=== PATIENT | male | born 1965 | race Caucasian/White ===

== ENCOUNTER 2019-09-09 14:24 | Emergency (ER) | payer BC ==
[2019-09-09 14:56] VITALS: BP 136/94
--- NOTE | 2019-09-09 15:18 | UC ---
General HPI - HPI Summary HPI Summary: 54 yo with a history of reflux, which he treats irregularly with protonix or prilosec, taking one tab every 5 to 7 days. Last night, he ate a piece of meat quickly and he states that he brought it right back up again. Since then, he has severe burning with all ingestion and has been sticking his fingers down his throat to make himself vomit. He is not swallowing his saliva. He states that he needs to eat and that he is dehydrated. He is voiding normally , and he has normal vitals. Advised that IV fluids are not indicated at this time. 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 Negative: Cough, Chest Pain - Allergy/Home Medications Allergies/Adverse Reactions: Allergies Allergy/AdvReac Type Severity Reaction Status Date / Time Penicillins Allergy A CHILD Verified 08/11/19 14:55 tetracycline Allergy Hives Verified 08/11/19 14:55 Home Medications: Home Medications Esomeprazole Magnesium [Nexium] 40 mg PO DAILY 09/09/19 [History Confirmed 09/09] Evolocumab [Repatha Sureclick] 140 mg SC SEE INSTRUCTIONS 09/09/19 [History Confirmed 09/09/19] PMH/Surg Hx/FS Hx/Imm Hx Previously Healthy: Yes Endocrine History: Dyslipidemia GI/ History: Gastroesophageal Reflux - Surgical History Surgical History: Yes Surgery Procedure, Year, and Place: 1999 NASAL SEPTUM [place]. [place]EE[place] 4 [place] [facility] [place] [facility] [place] TAG REMOVED - Family History Known Family History: Positive: Diabetes - Social History Occupation: Employed Full-time Lives: With Family Alcohol Use: Rare Alcohol Amount: 1 DRINK/MONTH Substance Use Type: None Smoking Status (MU): Never Smoked Tobacco Have You Smoked in the Last Year: No - Immunization History Most Recent Influenza Vaccination: not in a while Most Recent Tetanus Shot: UTD 2016 Review of Systems All Other Systems Reviewed And Are Negative: Yes Constitutional: Positive: Negative, Other - feels hungry Skin: Positive: Negative Eyes: Positive: Negative ENT: Negative: Sore Throat, Sinus Congestion Respiratory: Negative: Shortness Of Breath, Cough Cardiovascular: Negative: Palpitations, Chest Pain Gastrointestinal: Positive: Vomiting - self induced, Nausea Genitourinary: Positive: Negative Motor: Positive: Negative Neurovascular: Positive: Negative Musculoskeletal: Positive: Negative Neurological: Positive: Negative Psychological: Positive: Other - irritable Physical Exam Triage Information Reviewed: Yes Appearance: Well-Appearing, No Pain Distress, Other: - mildly irritable and restless Vital Signs: Initial Vital Signs Temp 98.7 F 09/09/19 14:51 Pulse 75 09/09/19 14:51 Resp 18 09/09/19 14:51 BP 136/94 09/09/19 14:51 Pulse Ox 98 09/09/19 14:51 Eyes: Positive: Conjunctiva Clear ENT: Positive: Pharynx normal Dental Exam: Normal Neck: Positive: Supple, Nontender, No Lymphadenopathy Respiratory: Positive: Lungs clear, Normal breath sounds Cardiovascular: Positive: RRR, No Murmur Abdomen Description: Positive: Nontender, No Organomegaly, Soft Musculoskeletal Exam: Normal Neurological: Positive: Alert Psychological Exam: Normal Skin Exam: Normal - no tenting. Course/Dx - Course Course Of Treatment: Discussed possible obstruction, but he states that he is not obstructed, but rather has severe reflux. Not clinically dehydrated. Will treat with zofran, advised ER if continued difficulty swallowing. - Differential Dx - Multi-Symptom Differential Diagnoses: Other - esophageal spasm, esophageal obstruction, reflux - Diagnoses Provider Diagnosis: Esophageal reflux disease Discharge ED - Sign-Out/Discharge Documenting (check all that apply): Patient Departure All imaging exams completed and their final reports reviewed: No Studies - Discharge Plan Condition: Stable Disposition: HOME Patient Education Materials: Gastroesophageal Reflux Disease (ED) Referrals: Nahum Chapman MD [Primary Care Provider] - Additional Instructions: YOU MUST STOP SELF INDUCING VOMITING. YOU HAVE BEEN GIVEN ZOFRAN WHICH WILL DECREASE NAUSEA. I SUGGEST THAT YOU THEN PBX INSPECTOR GAVISCON TABLETS TO CHEW AN ANTACID, WHICH WILL HELP TO COAT THE IRRITATED ESOPHAGUS. AFTER AN HOUR, BEGIN BEGIN SIPS OF CLEAR FLUID, AND THEN ADVANCE DIET TOLERATED. BEGIN WITH LIQUIDS SUCH SMOOTHIES, YOGURT, OATMEAL, CREAMY SOUPS. - Billing Disposition and Condition Condition: STABLE Disposition: Home
[2019-09-09] MEDS ORDERED: Ondansetron ODT TAB* 4 MG PO ONE (15:28)
== END 2019-09-09 15:45 | disposition home or self-care (01) ==
LOC: UCEAST 14:24
DX: K21.9 Gastro-esophageal reflux disease without esophagitis (principal); E78.5 Hyperlipidemia, unspecified; Z79.899 Other long term (current) drug therapy; Z88.0 Allergy status to penicillin; Z88.1 Allergy status to other antibiotic agents
CPT/HCPCS: 99212; A9270-GY; G0463